=== PATIENT | male | born 1985 | race Caucasian/White ===

== ENCOUNTER 2024-05-12 13:44 | Emergency (ER) | payer OTHER ==
[~2024-05-12] VITALS: Ht 175.3 cm; Wt 109.0 kg
[2024-05-12 13:48] VITALS: TEMP 98.4; O2SAT 100
[2024-05-12] MEDS: DIAZEPAM 5 MG TABLET PO ONE (15:04)
[2024-05-12 15:30] LABS: BASOPHILS % 0.5 % (0.0-2.0); EOSINOPHILS % 0.6 % (0.0-5.0); HEMATOCRIT. 45.1 % (42.0-52.0); HEMOGLOBIN. 15.6 g/dL (14.0-18.0); LYMPHOCYTES % 11.9 % (20.0-50.0); MEAN CORPUSCULAR HEMOGLOBIN 31.2 pg (28.0-32.0); MEAN CORPUSCULAR HGB CONC 34.7 g/dL (31.0-37.0); MEAN CORPUSCULAR VOLUME 89.8 fL (80.0-94.0); MEAN PLATELET VOLUME 8.5 fl (7.4-10.4); MONOCYTES % 7.7 % (2.0-8.0); NEUTROPHILS % 79.3 % (40.0-76.0); PLATELET 217 x1000/uL (130-400); RED BLOOD CELL COUNT 5.02 mill/uL (4.7-6.1); RED CELL DISTRIBUTION WIDTH 13.6 % (11.6-14.6)
[2024-05-12 15:39] LABS: CHLORIDE 106 mEq/L (98-107); POTASSIUM 3.6 mEq/L (3.5-5.1); SODIUM 138 mEq/L (136-145)
[2024-05-12 15:40] LABS: CALCIUM 9.9 mg/dL (8.7-10.4); CARBON DIOXIDE 24 mEq/L (21-32)
[2024-05-12 15:45] LABS: GLUCOSE 114 mg/dL (70-105); UREA NITROGEN BLOOD 11 mg/dL (9-23)
[2024-05-12 15:55] LABS: TROPONIN I HIGH SENSITIVITY < 4 ng/L (3.0-53)
[2024-05-12 16:41] VITALS: BP 134/87; PULSE 91; RESP 16; O2SAT 98
== END 2024-05-12 16:42 | disposition home or self-care (01) ==
LOC: ER 13:44
DX: R07.89 Other chest pain (principal); R06.02 Shortness of breath; F41.9 Anxiety disorder, unspecified; Z88.0 Allergy status to penicillin
CPT/HCPCS: 36415; 71045; 80048; 84484; 85025; 93005; 99285

== ENCOUNTER 2024-09-04 13:50 | Emergency (ER) | payer OTHER ==
[~2024-09-04] VITALS: Ht 172.7 cm; Wt 104.3 kg
[2024-09-04 13:58] VITALS: TEMP 36.6; O2SAT 100
[2024-09-04] MEDS ORDERED: IBUPROFEN 600MG TABLET PO ONE (15:45)
[2024-09-04] MEDS: IBUPROFEN 600MG TABLET PO NR (19:45)
[2024-09-04] MEDS ORDERED: METH4TAB95 MT (21:39)
[2024-09-04] MEDS ORDERED: IBUP-2029 MT (21:39)
[2024-09-04 21:52] VITALS: BP 150/99; PULSE 74; RESP 18; O2SAT 99
== END 2024-09-04 21:53 | disposition home or self-care (01) ==
LOC: ER 14:31
DX: R07.0 Pain in throat (principal); R09.A2 Foreign body sensation, throat; Z88.0 Allergy status to penicillin; Z20.822 Contact with and (suspected) exposure to COVID-19
CPT/HCPCS: 87070; 87426; 87430; 87804; 99283